=== PATIENT | female | born 1990 | race Caucasian/White ===

== ENCOUNTER 2016-11-13 20:41 | Observation (INO) | payer MEDICAID, OTHER ==
[~2016-11-13] VITALS: Ht 152.4 cm; Wt 73.5 kg
[2016-11-13 21:20] LABS: CLARITY URINE TURBID (CLEAR); COLOR URINE YELLOW (YELLOW); GLUCOSE URINE NEGATIVE (NEGATIVE); KETONES URINE NEGATIVE (NEGATIVE); LEUKOCYTE ESTERASE URINE NEGATIVE (NEGATIVE); NITRITE URINE NEGATIVE (NEGATIVE); OCCULT BLOOD URINE NEGATIVE (NEGATIVE); PH URINE 7.5 (4.5-8.0); PROTEIN URINE NEGATIVE (NEGATIVE); SPECIFIC GRAVITY URINE 1.015 (1.005-1.030)
[2016-11-13] MEDS ORDERED: PREN-88 PO (21:38)
[2016-11-13] MEDS ORDERED: ACETAMINOPHEN 500MG TABLET PO NR (21:45)
== END 2016-11-13 22:00 | disposition home or self-care (01) ==
LOC: L&D 20:41
PROVIDERS: ADMIT Obstetrics & Gynecology; ATTEND Obstetrics & Gynecology
DX: O26.892 Other specified pregnancy related conditions, second trimester (principal); R10.9 Unspecified abdominal pain; Z3A.22 22 weeks gestation of pregnancy
CPT/HCPCS: 81001; 99281; G0378; J7120

== ENCOUNTER 2017-03-20 11:06 | Inpatient (IN) | payer OTHER ==
[~2017-03-20] VITALS: Ht 154.9 cm; Wt 81.6 kg
[~2017-03-20 11:06] MED LIST: PREN-88 PO
[2017-03-20] MEDS ORDERED: DEXT 5%/LR + PITOCIN 20UNITS/L 1,000 ML IV SCH ×2 (11:25→16:57)
[2017-03-20] MEDS ORDERED: FERR325T6 PO (11:25)
[2017-03-20] MEDS ORDERED: METHYLERGONOVINE MALEATE 0.2 MG/ML IM PRN (11:30)
[2017-03-20] MEDS ORDERED: MISOPROSTOL 100MCG TABLET VG PRN (11:30)
[2017-03-20] MEDS ORDERED: EPHEDRINE SULFATE 50MG/ML VIAL ONE (12:33)
[2017-03-20] MEDS ORDERED: FENTANYL CITRATE/PF 50MCG/ML 2ML VIAL ONE (12:33)
[2017-03-20] MEDS ORDERED: OXYTOCIN 10 UNITS/ML 1ML ONE (12:33)
[2017-03-20] MEDS ORDERED: MORPHINE SULFATE/PF 1MG/ML 10ML AMP ONE (12:33)
[2017-03-20] MEDS ORDERED: ONDANSETRON HCL 4MG/2ML VIAL ONE (12:34)
[2017-03-20] MEDS: LACTATED RINGERS 1,000 ML IV SCH ×2 (12:35→15:02)
[2017-03-20 12:51] LABS: BASOPHILS % 0.4 % (0.0-2.0); EOSINOPHILS % 0.4 % (0.0-5.0); HEMATOCRIT. 35.6 % (36.0-48.0); HEMOGLOBIN. 11.7 g/dL (12.0-16.0); LYMPHOCYTES % 14.2 % (20.0-50.0); MEAN CORPUSCULAR HEMOGLOBIN 27.6 pg (28.0-32.0); MEAN CORPUSCULAR VOLUME 83.9 fL (81.0-99.0); MEAN PLATELET VOLUME 10.4 fl (7.4-10.4); MONOCYTES % 5.7 % (2.0-8.0); NEUTROPHILS % 79.3 % (40.0-76.0); PLATELET 182 x1000/uL (130-400); RED BLOOD CELL COUNT 4.25 mill/uL (4.2-5.4); RED CELL DISTRIBUTION WIDTH 15.7 % (11.6-14.6)
[2017-03-20 12:59] LABS: INR 0.9; PARTIAL THROMBOPLASTIN TIME 25.4 sec (23.4-31.0); PROTHROMBIN TIME 9.7 sec (9.4-11.6)
[2017-03-20 13:41] LABS: HEPATITIS B SURFACE ANTIGEN NEGATIVE
[2017-03-20 14:35] LABS: CLARITY URINE CLEAR (CLEAR); COLOR URINE YELLOW (YELLOW); GLUCOSE URINE NEGATIVE (NEGATIVE); KETONES URINE NEGATIVE (NEGATIVE); LEUKOCYTE ESTERASE URINE NEGATIVE (NEGATIVE); NITRITE URINE NEGATIVE (NEGATIVE); OCCULT BLOOD URINE NEGATIVE (NEGATIVE); PROTEIN URINE NEGATIVE (NEGATIVE); SPECIFIC GRAVITY URINE 1.008 (1.005-1.030); UROBILINOGEN URINE 0.2 E.U./dL (0.2-1.0)
[2017-03-20 15:19] LABS: *AMPHETAMINES SCREEN URINE NEGATIVE (NEGATIVE); *BARBITURATES SCREEN URINE NEGATIVE (NEGATIVE); *BENZODIAZEPINES SCREEN URINE NEGATIVE (NEGATIVE); *COCAINE SCREEN URINE NEGATIVE (NEGATIVE); CANNABINOID URINE SCREEN NEGATIVE (NEGATIVE); METHADONE URINE SCREEN NEGATIVE (NEGATIVE); OPIATES URINE SCREEN NEGATIVE (NEGATIVE); PHENCYCLIDINE URINE SCREEN NEGATIVE (NEGATIVE)
[2017-03-20] MEDS ORDERED: CEFAZOLIN 2000MG PREMIX 50 ML IV ONE ×2 (15:49→16:44)
[2017-03-20] MEDS ORDERED: GLYCOPYRROLATE 0.2 MG/ML 2ML VIAL ONE (16:16)
[2017-03-20] MEDS ORDERED: BISACODYL 10MG SUPP PR PRN (17:00)
[2017-03-20] MEDS ORDERED: DIPHENHYDRAMINE 25MG CAPSULE PO PRN (17:00)
[2017-03-20] MEDS ORDERED: HYDROCODONE/ACETAMINOPHEN 5/325MG TABLET PO PRN ×2 (17:00)
[2017-03-20] MEDS ORDERED: LANOLIN OINT 0.25 GM TUBE TOP PRN (17:00)
[2017-03-20] MEDS ORDERED: ONDANSETRON HCL 4MG/2ML VIAL IV PRN (17:00)
[2017-03-20] MEDS ORDERED: DIPHENHYDRAMINE 50MG/ML VIAL ONE (17:02)
[2017-03-20] MEDS ORDERED: NALOXONE HCL 0.4 MG/ML 1ML VIAL IV PRN (17:15)
[2017-03-20] MEDS ORDERED: DIPHENHYDRAMINE 50MG/ML VIAL IV PRN (17:15)
[2017-03-20] MEDS ORDERED: BUTORPHANOL TARTRATE 2 MG/ML VIAL IV PRN (17:15)
[2017-03-20 22:00] VITALS: BP 118/71
[2017-03-20] MEDS: DOCUSATE SODIUM 100MG CAPSULE PO SCH (22:14)
[2017-03-20 22:30] VITALS: BP 117/70
[2017-03-20 23:00] VITALS: BP 116/70
[2017-03-20 23:30] VITALS: BP 116/72
[2017-03-21] MEDS: KETOROLAC 30MG/ML VIAL IV PRN ×3 (00:34→12:06)
[2017-03-21 04:00] VITALS: BP 102/58
[2017-03-21 06:00] VITALS: BP 103/61
[2017-03-21 07:02] LABS: BASOPHILS % 0.2 % (0.0-2.0); EOSINOPHILS % 0.8 % (0.0-5.0); HEMATOCRIT. 31.2 % (36.0-48.0); HEMOGLOBIN. 10.2 g/dL (12.0-16.0); LYMPHOCYTES % 15.2 % (20.0-50.0); MEAN CORPUSCULAR HEMOGLOBIN 27.2 pg (28.0-32.0); MEAN CORPUSCULAR VOLUME 83.3 fL (81.0-99.0); MEAN PLATELET VOLUME 10.4 fl (7.4-10.4); NEUTROPHILS % 75.8 % (40.0-76.0); PLATELET 179 x1000/uL (130-400); RED BLOOD CELL COUNT 3.75 mill/uL (4.2-5.4)
[2017-03-21 07:32] VITALS: BP 92/51
[2017-03-21] MEDS ORDERED: INFLUENZA VIRUS VACCINE 0.5ML SYR IM ONE (08:00)
[2017-03-21] MEDS ORDERED: TETANUS, DIPHTHERIA, PERTUSSIS VAC/PF 0.5ML (>7YR OLD) IM ONE (08:00)
[2017-03-21] MEDS: SIMETHICONE 80MG TABLET CHEW PO SCH ×4 (08:11→22:13)
[2017-03-21] MEDS: PRENATAL VIT/FE FUMARATE/FA TABLET PO SCH (08:11)
[2017-03-21] MEDS: FERROUS SULFATE 325MG TABLET PO SCH ×2 (12:12→17:37)
[2017-03-21 15:26] VITALS: BP 93/50
[2017-03-21] MEDS: IBUPROFEN 400MG TABLET PO PRN (17:37)
[2017-03-21 21:15] VITALS: BP 98/57
[2017-03-21] MEDS: DOCUSATE SODIUM 100MG CAPSULE PO SCH (22:14)
[2017-03-22] MEDS: IBUPROFEN 400MG TABLET PO PRN ×3 (00:10→17:23)
[2017-03-22 04:30] VITALS: BP 106/59
[2017-03-22 07:28] VITALS: BP 104/55
[2017-03-22] MEDS: SIMETHICONE 80MG TABLET CHEW PO SCH ×4 (09:08→20:18)
[2017-03-22] MEDS: PRENATAL VIT/FE FUMARATE/FA TABLET PO SCH (09:09)
[2017-03-22] MEDS: FERROUS SULFATE 325MG TABLET PO SCH ×3 (09:09→17:23)
[2017-03-22 15:03] VITALS: BP 108/75
[2017-03-22 20:00] VITALS: BP 114/65
[2017-03-22] MEDS: DOCUSATE SODIUM 100MG CAPSULE PO SCH (20:19)
[2017-03-23] MEDS: IBUPROFEN 400MG TABLET PO PRN (05:11)
[2017-03-23 05:26] VITALS: BP 117/68
[2017-03-23 08:00] VITALS: BP 101/72
== END 2017-03-23 11:40 | disposition home or self-care (01) | DRG 540 ==
LOC: L&D 11:06 → OBSVTOIN 11:06 → 7EST PP/OB 22:00
PROVIDERS: ADMIT Specialist; ATTEND Specialist
PROC: 10D00Z1 Extraction of Products of Conception, Low, Open Approach (ICD-10-PCS; principal; 2017-03-20 15:47)
DX: O34.211 Maternal care for low transverse scar from previous cesarean delivery (principal); D64.9 Anemia, unspecified; O99.03 Anemia complicating the puerperium; O62.2 Other uterine inertia; Z37.0 Single live birth; Z3A.40 40 weeks gestation of pregnancy
CPT/HCPCS: 36415; 80305; 81003; 85025; 85610; 85730; 86592; 86703; 86762; 86850; 86900; 87340; 88307; 90686; 99281; J0171; J0595; J0690; J1200; J1885; J2274; J2405; J2590; J3010; J3490; J7120; A4315